=== PATIENT | female | born 1985 | race Caucasian/White ===

== ENCOUNTER 2023-02-14 09:49 | Emergency (ER) | payer OTHER, SELFPAY ==
[2023-02-14 09:57] VITALS: BP 116/73; PULSE 52; RESP 16; TEMP 36.4; O2SAT 99
--- NOTE | 2023-02-14 10:06 | ED.URI ---
HPI - URI/Sore Throat General Chief Complaint: Upper Respiratory Infection Stated Complaint: Head/fever/cough/throat Time Seen by Provider: 02/14/23 10:28 History of Present Illness HPI Narrative: 37-year-old female presented for complaint of sore throat and headache, body aches, sinus pressure/congestion, cough, fever/chills. Onset 2 days. Denies sob, wheezing, n/v/d. Related Data Home Medications Medication Instructions Recorded Confirmed escitalopram oxalate 10 mg tablet 10 mg PO DAILY 11/07/21 11/07/21 Allergies Allergy/AdvReac Type Severity Reaction Status Date / Time No Known Allergies Allergy Unverified 02/14/23 10:05 Review of Systems Review of Systems: CONSTITUTIONAL: Reports body aches, fever, chills EYES: Denies visual changes, redness, or discharge. ENT: reports sore throat , rhinorrhea, congestion CARDIOVASCULAR: Denies chest pain, palpitations, or edema. RESPIRATORY: Denies dyspnea. GASTROINTESTINAL: Denies abdominal pain, nausea, vomiting, or diarrhea. SKIN: Denies rash, itching, or wounds. MUSCULOSKELETAL: Denies back pain, joint pain NEUROLOGIC: reports headache PMF Past Medical History Medical History (Updated 02/14/23 @ 10:33 by Deysi Pena APRN) No pertinent past medical history Social History Social History Smoking status: Never smoker Alcohol intake: never Substance use: never Living arrangements: with family Exam Narrative: GENERAL: mildly Ill-appearing, no acute distress. EYES: conjunctivae clear ENT: Mucous membranes moist. TMs pearly marshall with normal light reflex bilaterally; no tragal tenderness. No drooling, no hoarseness, no trismus, uvula midline. No tripod positioning, hot potato voice, or soft palate swelling. NECK: Supple. No lymphadenopathy CHEST: Clear to auscultation, breath sounds equal. No respiratory distress, speaks in full sentences. HEART: Regular rate and rhythm. No murmur heard. SKIN: Warm, dry, no rash. NEURO: Alert and oriented x3. Course Course Emergency Course: Patient is aware of diagnosis, understands and agrees to treatment plan. Anticipatory guidance given. Patient agrees to follow-up as directed and is aware of reasons to seek care at the emergency department. Portions of this record may have been created with voice recognition software Level of Care: Express Care Visit Vital Signs Vital signs: Vital Signs Temperature 97.6 F 02/14/23 09:57 Pulse Rate 52 L 02/14/23 09:57 Respiratory Rate 16 02/14/23 09:57 Blood Pressure 116/73 02/14/23 09:57 Pulse Oximetry 99 02/14/23 09:57 Oxygen Delivery Room Air 02/14/23 09:57 Temperature 97.6 F 02/14/23 09:57 Pulse Rate 52 L 02/14/23 09:57 Respiratory Rate 16 02/14/23 09:57 Blood Pressure 116/73 02/14/23 09:57 Pulse Oximetry 99 02/14/23 09:57 Oxygen Delivery Room Air 02/14/23 09:57 MDM - URI/Sore Throat MDM Narrative Medical decision making narrative: POS covid result reviewed with pt. Advise supportive treatments. Patient is appropriate for outpatient treatment and follow-up. Differential Diagnosis Differential diagnosis: Likely upper respiratory infection, viral infection and pharyngitis Lab Data Labs: Lab Results 02/14/23 Range/Units Unknown POC SARS CoV-2 Ag Positive (Negative) Influenza A Screen Negative Reference Range: Negative Influenza B Screen Negative Reference Range: Negative Discharge Plan Discharge Clinical Impression: COVID-19 Patient Disposition: Home, Self-Care Condition: Stable Instructions: Antibiotic Form, COVID-19 (Coronavirus Disease 2019) (ED) Additional Instructions: Your rapid COVID test was positive today. The following recommendations have been made by the CDC and loc
== END 2023-02-14 10:35 | disposition home or self-care (01) ==
PROVIDERS: Emergency Provider Nurse Practitioner Family; PCP Nurse Practitioner Family
DX: U07.1 COVID-19 (principal)
CPT/HCPCS: 87426; 87804; 99213; C9803; G0463